=== PATIENT | female | born 1960 | race Caucasian/White ===

== ENCOUNTER 2022-03-14 13:43 | Day surgery (SDC) | payer OTHER ==
[~2022-03-14] VITALS: Ht 160 cm; Wt 73.9 kg
[~2022-03-14 13:43] MED LIST: BENADRYL ALLERG25 MG; CLONAZEPAM0.5 MG; ZESTRIL5 MG
== END 2022-03-14 22:25 | disposition home or self-care (01) ==
LOC: CIR.AMB 13:43
PROVIDERS: ATTEND Obstetrics & Gynecology Obstetrics
DX: N84.0 Polyp of corpus uteri (principal); I10 Essential (primary) hypertension; E16.2 Hypoglycemia, unspecified; M79.7 Fibromyalgia; G62.9 Polyneuropathy, unspecified; Z86.16 Personal history of COVID-19; Z20.822 Contact with and (suspected) exposure to COVID-19